=== PATIENT | female | born 1990 | race Caucasian/White ===

== ENCOUNTER 2018-09-18 20:35 | Emergency (ER) | payer MEDICAID, OTHER ==
[~2018-09-18] VITALS: Ht 170.2 cm; Wt 50.0 kg
[2018-09-18] MEDS ORDERED: ONDANSETRON 2MG/ML, 2ML IVPush ONE (21:00)
[2018-09-18] MEDS ORDERED: SODIUM CHLORIDE FLUSH 10ML SYR IVF ONE (21:00)
[2018-09-18] MEDS ORDERED: SODIUM CHLORIDE 0.9% 1,000ML IVBOLUS ONE (21:00)
--- NOTE | 2018-09-18 21:30 | NUR ---
ASSUMED CARE OF PATIENT. REPORT GIVEN FROM ALEXANDRIA CARUSO
[2018-09-18 21:38] LABS: ALBUMIN 3.3 g/dL (3.4-5.0); ANION GAP 11 mmol/L (5-15); CALCIUM 8.5 mg/dL (8.5-10.1); CHLORIDE 108 mmol/L (98-107); CREATININE 0.63 mg/dL (0.55-1.02)
[2018-09-18 21:40] LABS: BASOPHILS # (AUTO) 0.02 x10^3/uL (0-0.1); BASOPHILS % (AUTO) 0 % (0-1); EOSINOPHILS # (AUTO) 0.01 x10^3/uL (0-0.4); EOSINOPHILS % (AUTO) 0 % (1-7); LYMPHOCYTES # (AUTO) 1.25 x10^3/uL (1-3.4); LYMPHOCYTES % (AUTO) 15 % (22-44); MD SCAN; MEAN CORPUSCULAR HEMOGLOBIN 29.4 pg (27.0-34.8); MEAN CORPUSCULAR HGB CONC 33.2 g/dL (32.4-35.8); MEAN CORPUSCULAR VOLUME 88.5 fL (80-100); MEAN PLATELET VOLUME 10.7 fL (7.4-10.4); MONOCYTES # (AUTO) 0.38 x10^3/uL (0.2-0.8); MONOCYTES % (AUTO) 4 % (2-9); NEUTROPHILS # (AUTO) 6.94 x10^3/uL (1.8-6.8); NEUTROPHILS % (AUTO) 81 % (42-75); PLATELET COUNT 189 x10^3/uL (130-400); RED BLOOD COUNT 4.66 x10^6/uL (3.82-5.3)
[2018-09-18 21:41] LABS: ALANINE AMINOTRANSFERASE 17 U/L (12-78); ALKALINE PHOSPHATASE 50 U/L (45-117); TOTAL PROTEIN 6.4 g/dL (6.4-8.2)
[2018-09-18 22:18] LABS: MICROSCOPIC NOT IND
[2018-09-18 22:19] LABS: CULTURE INDICATED? NO; HCG UR SG 1.025 (1.003-1.030)
--- NOTE | 2018-09-18 22:41 | NUR ---
Pt visiting with boyfriend in room. No acute distress noted. VS stable. Call light in place. will continue to monitor.
--- NOTE | 2018-09-18 23:11 | NUR ---
Pt resting in room. no acute distress noted. vs stable. will continue to monitor.
--- NOTE | 2018-09-19 | NUR ---
PT RESTING IN ROOM. REGULAR RESP. NO ACUTE DISTRESS NOTED. CALL LIGHT IN PLACE. WILL CONTINUE TO MONITOR.
--- NOTE | 2018-09-19 00:32 | NUR ---
CARMEN HARDEN IN ROOM
--- NOTE | 2018-09-19 00:46 | NUR ---
Note leida in ED - 09/19/18 at 0058 by LHAFEN PT BACK FROM [place]. NO ACUTE DISTRESS NOTED. WILL CONTINUE TO MONTIOR.
--- NOTE | 2018-09-19 00:58 | NUR ---
PT IN [place]
--- NOTE | 2018-09-19 01:18 | NUR ---
PT RESTING IN ROOM. REGULAR RESP. NO ACUTE DISTRESS NOTED. CALL LIGHT IN PLACE. WILL CONTINUE TO MONITOR.
[2018-09-19 01:45] VITALS: BP 102/58
== END 2018-09-19 01:37 | disposition home or self-care (01) ==
LOC: ED 21:43
DX: O21.9 Vomiting of pregnancy, unspecified (principal); F11.10 Opioid abuse, uncomplicated; F17.210 Nicotine dependence, cigarettes, uncomplicated; Z3A.01 Less than 8 weeks gestation of pregnancy; Z72.9 Problem related to lifestyle, unspecified; Z75.9 Unspecified problem related to medical facilities and other health care
CPT/HCPCS: 36415; 76801; 80053; 81003; 81025; 83690; 84702; 85025; 86901; 96361; 96374; 99284; J2405; J7030